=== PATIENT | female | born 1990 | race Two or more races ===

== ENCOUNTER 2020-04-09 16:50 | Emergency (ER) | payer MEDICAID, OTHER ==
[~2020-04-09] VITALS: Ht 167.6 cm; Wt 76.7 kg
[2020-04-09 16:55] VITALS: BP 130/81
[2020-04-09] MEDS ORDERED: ACETAMINOPHEN 500 MG TABLET PO ONE (19:00)
[2020-04-09] MEDS ORDERED: KETOROLAC 30 MG/1 ML IM ONE (19:00)
[2020-04-09] MEDS ORDERED: KETOROLAC 30 MG/1 ML ONE (19:05)
[2020-04-09 19:12] LABS: BASOPHILS % (AUTO) 1 % (0-1); EOSINOPHILS % (AUTO) 1 % (1-7); LYMPHOCYTES % (AUTO) 33 % (22-44); MEAN CORPUSCULAR HEMOGLOBIN 23.8 pg (27.0-34.8); MONOCYTES % (AUTO) 5 % (2-9); NEUTROPHILS % (AUTO) 61 % (42-75); PLATELET COUNT 377 x10^3/uL (130-400); RED BLOOD COUNT 4.95 x10^6/uL (3.82-5.3); RED CELL DISTRIBUTION WIDTH 16.7 % (9.6-15.2)
[2020-04-09 19:13] LABS: MD NO
[2020-04-09 19:22] LABS: ALANINE AMINOTRANSFERASE 27 U/L (12-78); ALBUMIN 3.9 g/dL (3.4-5.0); ANION GAP 5 mmol/L (5-15); CALCIUM 8.8 mg/dL (8.5-10.1); CHLORIDE 110 mmol/L (98-107); CREATININE 0.67 mg/dL (0.55-1.02)
[2020-04-09 19:24] LABS: ALKALINE PHOSPHATASE 78 U/L (45-117); BILIRUBIN,TOTAL 0.2 mg/dL (0.2-1.0); TOTAL PROTEIN 8.2 g/dL (6.4-8.2)
[2020-04-09] MEDS ORDERED: ACETAMINOPHEN 500 MG TABLET ONE (19:53)
== END 2020-04-09 20:04 | disposition home or self-care (01) ==
LOC: ED 17:56
DX: U07.1 COVID-19 (principal); R06.02 Shortness of breath; J40 Bronchitis, not specified as acute or chronic; B34.9 Viral infection, unspecified; R11.10 Vomiting, unspecified; R51.9 Headache, unspecified; R05 Cough; R50.9 Fever, unspecified; R19.7 Diarrhea, unspecified
CPT/HCPCS: 36415; 71045; 80053; 85025; 93005; 96372; 99285; J1885

== ENCOUNTER 2020-08-19 06:39 | Emergency (ER) | payer MEDICAID ==
[~2020-08-19] VITALS: Ht 162.6 cm; Wt 78.7 kg
[2020-08-19] MEDS ORDERED: HYDROcodone/APAP 5/325 TABLET PO ONE (07:00)
[2020-08-19] MEDS ORDERED: PROMETHAZINE 25 MG/ML, 1ML IM ONE (07:00)
--- NOTE | 2020-08-19 07:04 | NUR ---
PT PRESENTS TO ED WITH C/O BILATERAL LOWER ABD PAIN THAT RADIATES TO BACK BILATERAL THAT STARTED AT 0200 THIS MORNING. PT REPORTS INCREASED URINARY FREQUENCY AND PAINFUL URINATION, DENIES N/V. PT A&O, RESPS EVEN AND UNLABORED, NADN, VSS. SANTOSH BROCK AT BEDSIDE FOR EVAL.
[2020-08-19] MEDS ORDERED: HYDROcodone/APAP 5/325 TABLET ONE (07:10)
[2020-08-19] MEDS ORDERED: PROMETHAZINE 25 MG/ML, 1ML ONE (07:10)
[2020-08-19 07:34] LABS: MICROSCOPIC INDICATED
[2020-08-19 07:40] LABS: BASOPHILS % (AUTO) 1 % (0-1); EOSINOPHILS % (AUTO) 2 % (1-7); LYMPHOCYTES % (AUTO) 11 % (22-44); MEAN CORPUSCULAR HEMOGLOBIN 22.1 pg (27.0-34.8); MEAN CORPUSCULAR HGB CONC 31.5 g/dL (32.4-35.8); MEAN PLATELET VOLUME 7.7 fL (7.4-10.4); MONOCYTES % (AUTO) 5 % (2-9); NEUTROPHILS % (AUTO) 82 % (42-75); PLATELET COUNT 361 x10^3/uL (130-400); RED BLOOD COUNT 4.52 x10^6/uL (3.82-5.3); RED CELL DISTRIBUTION WIDTH 16.7 % (9.6-15.2)
[2020-08-19 07:45] LABS: ALANINE AMINOTRANSFERASE 19 U/L (12-78); ALBUMIN 3.4 g/dL (3.4-5.0); ANION GAP 9 mmol/L (5-15); CALCIUM 8.1 mg/dL (8.5-10.1); CHLORIDE 109 mmol/L (98-107); CREATININE 0.68 mg/dL (0.55-1.02)
[2020-08-19 07:49] LABS: ALKALINE PHOSPHATASE 64 U/L (45-117); BILIRUBIN,TOTAL 0.3 mg/dL (0.2-1.0); TOTAL PROTEIN 7.5 g/dL (6.4-8.2)
--- NOTE | 2020-08-19 08:20 | NUR ---
PT MEDICATED PER ORDER, TOLERATED WELL. STATES PAIN DECREASED FROM 8 TO 4/10. PT RESTING IN BED, A&O, RESPS EVEN AND UNLABORED, VSS, NADN. CALL LIGHT IN REACH.
[2020-08-19] MEDS ORDERED: CEFTRIAXONE 1,000 MG ONE (08:47)
[2020-08-19 08:57] VITALS: BP 101/63
[2020-08-19] MEDS ORDERED: CEFTRIAXONE 1,000 MG IM ONE (09:00)
--- NOTE | 2020-08-19 09:14 | NUR ---
PT EDUCATED ON DISCHARGE INSTRUCTIONS, VERBALIZED UNDERSTANDING. AMBULATORY TO DISCHARGE WITH STEADY GAIT, NO COMPLAINTS AT TIME OF DISCHARGE.
== END 2020-08-19 09:15 | disposition home or self-care (01) ==
LOC: ED 08:51
DX: N10 Acute pyelonephritis (principal); R10.30 Lower abdominal pain, unspecified
CPT/HCPCS: 36415; 80053; 81001; 84703; 85025; 87077; 87086; 96372; 99284; J0696; J2550; 87186